=== PATIENT | female | born 1975 | race Caucasian/White ===

== ENCOUNTER → 2018-06-13 07:18 | Outpatient (CLI) | payer OTHER, SELFPAY ==
--- NOTE | 2018-06-13 07:23 | BI_ITS ---
MAMMOGRAPHY - BILATERAL SCREENING REASON FOR EXAM: Female, 42 years old. Routine annual screening examination. PERTINENT HISTORY: Non-contributory. TECHNIQUE: Digital bilateral breast vianey (3D mammographic acquisition) in the CC and MLO projections. 2-D mediolateral oblique (MLO) and craniocaudad (CC) views of both breasts were obtained. CAD: Full Field Digital Mammography with Computer Added Detection was performed. COMPARISON: Comparison is made with prior study dated June 16, 2017. FINDINGS: Breast Composition: The breasts are heterogeneously dense, which may obscure small masses. There are no dominant masses or suspicious calcifications. No other significant abnormalities are identified. There has been no significant change since the prior study. BI/SCREENING MAMM (CAD), BILAT IMPRESSION: Stable bilateral screening mammogram. Yearly follow-up mammogram recommended. (A) ASSESSMENT CATEGORY: BIRADS Category 1: Negative. A letter regarding these results will be sent to the patient by the facility within 30 days. Approximately 10% of breast cancers are not detected by mammography. A normal mammogram should not delay biopsy of a clinically suspicious abnormality. [id number] Electronically Signed: Deepak Morataya MD at 11:42 EST Tel [phone], Service support ,
== END ==
PROVIDERS: Referring Provider Nurse Practitioner Women's Health; Visit Provider Nurse Practitioner Women's Health
DX: Z12.31 Encounter for screening mammogram for malignant neoplasm of breast (principal)
CPT/HCPCS: 77063; 77067

== ENCOUNTER 2018-12-21 19:10 | Emergency (ER) | payer OTHER, SELFPAY ==
[2018-06-13 07:57] VITALS: BMI 27.5
[2018-12-21 19:10] VITALS: BP 178/81; PULSE 101; RESP 16; TEMP 36.7; O2SAT 99; BMI 26.5
[2018-12-21 20:40] VITALS: RESP 14
[2018-12-21 20:41] LABS: Absolute Lymphocyte Count 3.04 X10^3/uL (0.83-4.51); Absolute Neutrophil Count 5.8 X10^3/uL (2.0-7.7); Basophil# 0.09 X10^3/uL; Basophil% 0.9 % (0-1); Eosinophil# 0.07 X10^3/uL; Eosinophils% 0.7 % (0-5); Hematocrit 37.9 % (37-47); Hemoglobin 13.1 g/dL (12.0-15.0); Lymphocyte # 3.04 X10^3/ul (4.0); Lymphocyte % 31.8 % (19-41); Mean Corp Hgb Conc 34.6 g/dL (32-36); Mean Corpuscular Hgb 31.6 pg (27.0-32.0); Mean Corpuscular Volume 91.3 fL (81-99); Mean Platelet Vol. 9.7 fl (6.2-12.0); Monocyte# 0.52 X10^3/uL; Monocyte% 5.4 % (0-10); NRBC Flagged by Analyzer 0 % (0-5); Neutrophil # 5.81 X10^3/uL (2.7-7.7); Platelet Count 203 K/mm3 (150-450); RBC Distribution Width SD 39.9 fl (35.1-43.9); Red Blood Count 4.15 M/mm3 (4.2-5.4); White Blood Count 9.6 K/mm3 (4.4-11.0)
[2018-12-21 20:45] LABS: Mucous, Urine 0 SEEN /hpf (<or=2+)
[2018-12-21 20:59] LABS: Anion Gap 6 (5-15); BUN 15 mg/dL (7-18); BUN/Creat Ratio 17.4 RATIO (10-20); Calcium,Total 8.7 mg/dL (8.5-10.1); Chloride 104 mmol/L (98-107); Creatinine, Serum 0.86 mg/dL (0.55-1.02); EST Glomerular Filtration Rate 76 mL/min (>60); Est Glom Filt Rate - Afr Amer 92 mL/min (>60); Estimated Creatinine Clearance 69.05 ml/min; Glucose 89 mg/dL (74-106); Potassium 3.3 mmol/L (3.5-5.1); Sodium Level 136 mmol/L (136-145)
[2018-12-21 21:17] LABS: Color, Urine Yellow (Yellow); Glucose, Dipstick Normal (Normal); Ketone-Dipstick 5 mg/dl (Negative); Leukocyte Esterase-Dipstick 500 /ul (Negative); Nitrite-Dipstick Positive (Negative); Occult Blood-Urine 150 /ul (Negative); Protein-Dipstick 30 mg/dl (Negative); Specific Gravity, Urine 1.015 (1.002-1.030); Urine Bilirubin Dipstick Negative (Negative); Urine Clarity Sl. Cloudy (Clear); Urine Urobilinogen Normal (Normal)
--- NOTE | 2018-12-21 21:17 | CT_ITS ---
STUDY: CT ABDOMEN AND PELVIS WITH CONTRAST REASON FOR EXAM: Female, 43 years old. Right upper quadrant pain for 4 days. RADIATION DOSAGE (If Supplied By Facility): CTDIvol = ( 9.6 ) mGy, DLP = ( 463.76 ) mGycm TECHNIQUE: Transaxial images were obtained from the dome of the diaphragm to the symphysis pubis without oral contrast. 100 IV Isovue 300 was administered. Sagittal and coronal images were reconstructed. Individualized dose optimization techniques were used for this CT. COMPARISON: None. FINDINGS: The visualized lung bases are unremarkable. The visualized portions of the heart are within normal limits. There is hepatomegaly with diffuse hepatic enlargement. There is no focal mass. Normal gallbladder and extrahepatic biliary system. Normal spleen. Normal pancreas. Normal bilateral adrenal glands. Normal right kidney. Normal left kidney. Normal visualized stomach. Normal small intestine. Normal colon. The appendix is visualized and appears normal. Normal abdominal aorta. Normal inferior vena cava. Normal retroperitoneum. Normal urinary bladder. Uterus is retroverted and grossly unremarkable. Essure wires are seen in both fallopian tubes. There is no adnexal mass. There is no pelvic lymphadenopathy. No free air or free fluid is seen within the peritoneal cavity Normal abdominal wall. Degenerative changes lower lumbar spine most marked at L5-S1. CT/Abdomen/Pelvis W IV Cont ONLY IMPRESSION: 1. No evidence of acute intra-abdominal or pelvic process. 2. Normal appendix. 3. Mild degenerative changes of the lumbar spine. 4. Hepatomegaly Electronically Signed: Gregorio Mir DO at 21:56 EDT Tel [phone], Service support ,
--- NOTE | 2018-12-21 21:18 | ED.VIS.GI ---
History of Present Illness Chief Complaint: Abd Pain Informant: Patient - Abdominal Pain/Flank Pain Onset: Days - 4 Context: Gradual Onset Timing: Continuous Quality: Aching Location: RLQ Current Severity: Moderate Maximum Severity: Moderate Worsened by: Nothing Relieved by: Nothing - Nausea/Vomiting/Emesis GI Symptom: Negative for: Nausea, Vomiting - Diarrhea/Melena/Hematochezia GI Symptom: Negative for: Diarrhea, Melena, Hematochezia Associated Symptoms: Dysuria - off and on x 2-3 weeks. Negative for: Frequency, Hematuria, Urgency Narrative: Initially diffuse abdominal discomfort that was not able to be localized, but for the past 2 or 3 days it has been in the right lower quadrant. No radiation. No anorexia, nausea, vomiting. Sent from urgent care for further evaluation. Past Medical History - Allergies and Home Meds Allergies/Adverse Reactions: Allergies No Known Allergies Allergy (Verified 12/21/18 19:12) Primary Care Physician: Care Physician,No Primary [Primary Care Provider] - Past Medical History: None Surgical History: no surgical history Lives: With Family Smoking Status: Never smoker Drugs: None Review of Systems General: Denies: Chills, Fever, Sweats Eyes: Denies: Visual changes - bilaterally, Diplopia ENT: Denies: Rhinorrhea, Sore throat Cardiovascular: Denies: Chest pain, Palpitations Respiratory: Denies: Dyspnea, Cough, Dyspnea on exertion Gastrointestinal: Reports: Abdominal pain. Denies: Nausea, Vomiting, Diarrhea, Melena, Hematochezia Genitourinary: Reports: Dysuria. Denies: Hematuria, Frequency Musculoskeletal: Denies: Back pain, Swelling, Extremity Pain Skin: Denies: Rash, Wounds Neurological: Denies: Headache, Weakness, Numbness Physical Exam Vital Signs/Narrative: Vital Signs Temp Pulse Resp BP Pulse Ox 12/21/18 20:40 14 12/21/18 19:10 98.1 F 101 H 16 178/81 H 99 Inital Vital Signs reviewed: Yes General: Well nourished, Well developed, No Acute Distress - Well-appearing, pleasant. Head: Normocephalic, Atraumatic Eyes: Perrl, EOMI ENT: Moist mucous membranes, No rhinorrhea Neck: Supple, Nontender Cardiovascular: Regular rate, Regular rhythm, No murmurs Respiratory: No distress, CTA bilaterally, Chest nontender Abdomen: Soft, Nondistended, Normal bowel sounds, Tender - Right lower quadrant at McBurney's point. No hernias.. Negative for: Guarding, Rebound tenderness, Psoas sign, Obturator sign, Rovsig's sign, Snider's sign Back: Nontender, Normal Inspection. Negative for: CVA tenderness Extremities: Nontender, No edema Skin: Normal color, No rash, No Trauma Neurological: Alert, Oriented x3, Cranial nerves II-XII grossly intact, Normal Strength, Normal Sensation Psychological: Normal affect, Normal Mood Diagnostic/Tx/Re-eval Impressions Abdomen/Pelvis CT 12/21/18 21:17 IMPRESSION: 1. No evidence of acute intra-abdominal or pelvic process. 2. Normal appendix. 3. Mild degenerative changes of the lumbar spine. 4. Hepatomegaly Electronically Signed: Gregorio Mir DO at 21:56 EDT Tel [phone], Service support , 12/21/18 21:17 Abdomen/Pelvis W IV Cont ONLY [CT] Stat Laboratory Results 12/21/18 12/21/18 12/21/18 20:32 20:32 20:32 WBC 9.6 RBC 4.15 L Hgb 13.1 Hct 37.9 MCV 91.3 MCH 31.6 MCHC 34.6 RDW Std Deviation 39.9 RDW Coeff of Elliot 12.0 Plt Count 203 MPV 9.7 Immature Gran % (Auto) 0.200 Neut % (Auto) 61.0 Lymph % (Auto) 31.8 [place] % (Auto) 5.4 Eos % (Auto) 0.7 Baso % (Auto) 0.9 Absolute Neuts (auto) 5.8 Absolute Lymphs (auto) 3.04 Absolute Nucleated RBC 0.00 Nucleated RBC % 0 Sodium 136 Potassium 3.3 L Chloride 104 Carbon Dioxide 26.0 Anion Gap 6 BUN 15 Creatinine 0.86 Estim Creat Clear Calc 69.05 Est GFR (MDRD) Af Amer 92 Est GFR (MDRD) Non-Af 76 BUN/Creatinine Ratio 17.4 Glucose 89 Calcium 8.7 Serum , Qual NEGATIVE Urine Color Urine Clarity Urine pH Ur Specific Logan Urine Protein Urine Glucose (UA) Urine Ketones Urine Occult Blood Urine Nitrite Urine Bilirubin Urine Urobilinogen Ur Leukocyte Esterase Urine RBC Urine WBC Ur Squamous Epith Cells Urine Bacteria Urine Mucus 12/21/18 20:37 WBC RBC Hgb Hct MCV MCH MCHC RDW Std Deviation RDW Coeff of Elliot Plt Count MPV Immature Gran % (Auto) Neut % (Auto) Lymph % (Auto) [place] % (Auto) Eos % (Auto) Baso % (Auto) Absolute Neuts (auto) Absolute Lymphs (auto) Absolute Nucleated RBC Nucleated RBC % Sodium Potassium Chloride Carbon Dioxide Anion Gap BUN Creatinine Estim Creat Clear Calc Est GFR (MDRD) Af Amer Est GFR (MDRD) Non-Af BUN/Creatinine Ratio Glucose Calcium Serum , Qual Urine Color Yellow Urine Clarity Sl. Cloudy Urine pH 5.0 Ur Specific Logan 1.015 Urine Protein 30 H Urine Glucose (UA) Normal Urine Ketones 5 H Urine Occult Blood 150 H Urine Nitrite Positive H Urine Bilirubin Negative Urine Urobilinogen Normal Ur Leukocyte Esterase 500 H Urine RBC 10-25 SEEN Urine WBC 25-50 SEEN Ur Squamous Epith Cells 0-5 SEEN Urine Bacteria 1+ Urine Mucus 0 SEEN - Medical Decision Making Labs are unremarkable, white blood count is in the 9 range, which does not help in ruling in or out appendicitis. I feel she has some components of this that could be related to appendicitis and others that argue against it. I think imaging would be indicated. She was in agreement. CT was performed and shows normal appendix and no other acute abnormality, her urinalysis shows significant signs of infection. She states with simple bladder infections in the past, she had classic UTI symptoms which she has not been having now. Therefore I will send her urine for a culture, and put her on 1 week of Bactrim, I do not think she has pyelonephritis clinically so she does not need 2 weeks, but if she does have a sending infection, she may need more than 3 or 5 days. She agrees with all this and will follow-up if her symptoms do not improve. ED Disposition - Plan for ED Patient: Disposition: Home or Assisted Living Diagnosis: Right lower quadrant abdominal pain, Urinary tract infection Instructions: Understanding Urinary Tract Infections (UTIs) Prescriptions: Sulfamethoxazole/Trimethoprim [Bactrim Ds Tablet] 1 ea PO BID #[id number] tab Prescription Printed Referrals: Radha Maradiaga, [facility] [Nurse Practitioner] - 3-5 Days if not improving
[2018-12-21 21:21] LABS: Pregnancy, Serum, hCG Quali. NEGATIVE Negative (0-9 Nonpreg)
[2018-12-21 21:29] LABS: Bacteria 1+ /hpf (None Seen); Red Blood Cells-Urine 10-25 SEEN /hpf (0-5); Squamous Epithelial Cells - UA 0-5 SEEN /hpf (5-10); White Blood Cells 25-50 SEEN /hpf (0-5)
[2018-12-21 21:45] LABS: Internal QC Validated? YES +Cl - CLEAR BKGD
[2018-12-21] MEDS: 0.9% Normal Saline 1,000 ML 1000 ML IV (21:50)
[2018-12-21 23:07] VITALS: RESP 16
[2018-12-21] MEDS: Smz/Tmp Ds Tablet 1 TABLET PO (23:22)
== END 2018-12-22 00:21 | disposition home or self-care (01) ==
PROVIDERS: Emergency Provider Emergency Medicine
DX: N39.0 Urinary tract infection, site not specified (principal); R10.31 Right lower quadrant pain
CPT/HCPCS: 74177; 80048; 81001; 84703; 85025; 87077; 87086; 87088; 87186; 96360; 99283; J7030; Q9967

== ENCOUNTER → 2019-07-13 07:50 | Outpatient (CLI) | payer OTHER, SELFPAY ==
[2019-07-12 09:49] VITALS: BMI 26.5
--- NOTE | 2019-07-13 07:51 | BI_ITS ---
MAMMOGRAPHY - BILATERAL SCREENING 3-D TOMOSYNTHESIS REASON FOR EXAM: Female, 44 years old. Routine screening PERTINENT HISTORY: No significant family history. TECHNIQUE: 2-D mammograms and 3-D Tomosynthesis of the breast (s) were performed. CAD was performed. COMPARISON: 06/13/2018 FINDINGS: The breast composition is heterogeneously dense that can obscure small breast masses. Scattered benign calcifications are seen. No dense spiculated masses or suspicious microcalcifications are identified. No architectural distortion is identified. There is no skin thickening or retraction. There is asymmetric density in the medial aspect of the left breast deep near the retroglandular fat noted by CAD. Further evaluation of this area with ultrasound is recommended. Right breast is stable and free of mammographic abnormality. BI/SCREEN MAMM (CAD) W/OSIRIS BILAT IMPRESSION: Subtle change in the probable pattern of the left breast deep near the retroglandular fat in the medial aspect of the breast noted by CAD, best seen on the cc views. Further evaluation with ultrasound recommended ASSESSMENT CATEGORY: BIRADS Category 0: Incomplete. Need additional imaging evaluation as above. A letter regarding these results will be sent to the patient by the facility within 30 days. FOLLOW UP RECOMMENDATION: Ultrasound Recommended. (I) Approximately 10% of breast cancers are not detected by mammography. A normal mammogram should not delay biopsy of a clinically suspicious abnormality. Electronically Signed: Zachery Sloan MD at 10:36 EST , Service support ,
== END ==
PROVIDERS: Referring Provider Nurse Practitioner Women's Health; Visit Provider Nurse Practitioner Women's Health
DX: Z12.31 Encounter for screening mammogram for malignant neoplasm of breast (principal)
CPT/HCPCS: 77063; 77067

== ENCOUNTER → 2019-07-17 07:57 | Outpatient (CLI) | payer OTHER, SELFPAY ==
[2019-07-12 09:49] VITALS: BMI 26.5
--- NOTE | 2019-07-17 07:59 | US_ITS ---
STUDY: ULTRASOUND BREAST - LEFT REASON FOR EXAM: Female, 44 years old. Abnormal screening mammogram. TECHNIQUE: Axial and longitudinal images of the LEFT breast were performed with a high resolution ultrasound transducer. # OF IMAGES: 70 COMPARISON: Comparison is made with prior mammogram dated July 13, 2019. FINDINGS: LEFT Breast: The medial half of the left breast was examined by ultrasound. There is a 2 mm x 2 mm x 2 mm cyst at the 11:00 position of the breast at 4 cm from nipple. There is also a 3 mm x 2 mm x 2 mm cyst at the 9:00 position breast at 2 cm from the nipple. US/Breast Limited Unilateral IMPRESSION: 2 small cysts are seen at the 11:00 and 9:00 position of the breast. ASSESSMENT CATEGORY: BIRADS Category 2: Benign. A letter regarding these results will be sent to the patient by the facility within 30 days. Electronically Signed: Deepak Morataya, at 9:41 EST , Service support ,
== END ==
PROVIDERS: Referring Provider Nurse Practitioner Women's Health; Visit Provider Nurse Practitioner Women's Health
DX: R92.8 Other abnormal and inconclusive findings on diagnostic imaging of breast (principal)
CPT/HCPCS: 76642

== ENCOUNTER → 2020-07-16 07:36 | Outpatient (CLI) | payer OTHER, SELFPAY ==
[2019-07-12 09:49] VITALS: BMI 26.5
--- NOTE | 2020-07-16 07:39 | BI_ITS ---
MAMMOGRAPHY - BILATERAL SCREENING REASON FOR EXAM: Female, 45 years old. Routine annual screening examination. PERTINENT HISTORY: Non-contributory. TECHNIQUE: Digital bilateral breast osiris (3D mammographic acquisition) in the CC and MLO projections. 2-D mediolateral oblique (MLO) and craniocaudad (CC) views of both breasts were obtained. CAD: Full Field Digital Mammography with Computer Added Detection was performed. COMPARISON: Comparison is made with prior study dated 07/13/2019 and 06/13/2018. FINDINGS: Breast Composition: The breasts are heterogeneously dense, which may obscure small masses. There are no dominant masses or suspicious calcifications. No other significant abnormalities are identified. There has been no significant change since the prior study. BI/SCRN MAMM (CAD)W/OSIRIS BILAT IMPRESSION: Stable bilateral screening mammogram. Yearly follow-up mammogram recommended. (A) ASSESSMENT CATEGORY: BIRADS Category 2: Benign. A letter regarding these results will be sent to the patient by the facility within 30 days. Approximately 10% of breast cancers are not detected by mammography. A normal mammogram should not delay biopsy of a clinically suspicious abnormality. [id number] Electronically Signed: Deepak Morataya MD at 8:35 EST , Service support ,
[2020-07-18 21:11] LABS: HPV APTIMA, High Risk Negative (Negative)
== END ==
PROVIDERS: Referring Provider Nurse Practitioner Women's Health; Visit Provider Nurse Practitioner Women's Health
DX: Z12.31 Encounter for screening mammogram for malignant neoplasm of breast (principal); Z12.4 Encounter for screening for malignant neoplasm of cervix
CPT/HCPCS: 77063; 77067; 87624; 88175; G0145

== ENCOUNTER → 2021-05-15 13:50 | Outpatient (CLI) | payer OTHER, SELFPAY ==
--- NOTE | 2021-05-15 13:52 | BI_ITS ---
MAMMOGRAPHY - BILATERAL DIAGNOSTIC REASON FOR EXAM: Female, 45 years old. One week history of right axillary lump. PERTINENT HISTORY: Non-contributory. TECHNIQUE: Digital bilateral breast vianey (3D mammographic acquisition) in the CC and MLO projections. 2-D mediolateral oblique (MLO) and craniocaudad (CC) views of both breasts were obtained. CAD: Full Field Digital Mammography with Computer Added Detection was performed. COMPARISON: Comparison is made with prior study dated 07/16/2020 and 02/11/2020. FINDINGS: Breast Composition: The breasts are heterogeneously dense, which may obscure small masses. There are no dominant masses or suspicious calcifications. No other significant abnormalities are identified. There has been no significant change since the prior study. BI/DIAG MAMM W/CAD, BILAT IMPRESSION: Stable bilateral diagnostic mammogram. With the patient''s history of a right axillary lump, correlation with ultrasound is recommended. ASSESSMENT CATEGORY: BIRADS Category 0: Incomplete. Need additional imaging evaluation. A letter regarding these results will be sent to the patient by the facility within 30 days. Approximately 10% of breast cancers are not detected by mammography. A normal mammogram should not delay biopsy of a clinically suspicious abnormality. Electronically Signed: Deepak Morataya MD at 14:58 EST , Service support ,
--- NOTE | 2021-05-15 13:52 | US_ITS ---
STUDY: ULTRASOUND BREAST - RIGHT REASON FOR EXAM: Female, 45 years old. Right axillary lump. TECHNIQUE: Axial and longitudinal images of the RIGHT breast were performed with a high resolution ultrasound transducer. # OF IMAGES: 15 COMPARISON: Comparison is made with prior mammogram done earlier in the day. FINDINGS: RIGHT Breast: The right axillary region was examined by ultrasound. There is dense fibrous and glandular tissue. No solid or cystic mass lesion is seen. US/Breast Limited Unilateral IMPRESSION: No sonographic abnormality is seen. ASSESSMENT CATEGORY: BIRADS Category 2: Benign. A letter regarding these results will be sent to the patient by the facility within 30 days. Electronically Signed: Deepak Morataya MD at 15:04 EST , Service support ,
== END ==
PROVIDERS: Referring Provider Nurse Practitioner Women's Health; Visit Provider Nurse Practitioner Women's Health
DX: N63.0 Unspecified lump in unspecified breast (principal); R22.2 Localized swelling, mass and lump, trunk
CPT/HCPCS: 76642; 77062; 77063; 77066; G0279

== ENCOUNTER 2021-09-16 08:43 | Outpatient (CLI) | payer OTHER, SELFPAY ==
[2021-09-16 09:45] LABS: Cholesterol 238 mg/dL (200); Glucose 98 mg/dL (74-106); High Density Lipoprotein 103 mg/dL; Thyroid Stim Hormone (TSH) 2.04 uIU/mL (0.358-3.74); Triglycerides 109 mg/dL; Very Low Density Lipoprotein 22 mg/dL (5-40)
[2021-09-16 09:58] LABS: Vitamin D,25 Hydroxy 32.2 ng/mL
== END 2021-09-16 23:59 | disposition home or self-care (01) ==
LOC: PAVLAB 08:44
PROVIDERS: Referring Provider Nurse Practitioner Women's Health; Visit Provider Nurse Practitioner Women's Health
DX: Z13.1 Encounter for screening for diabetes mellitus (principal); Z13.220 Encounter for screening for lipoid disorders; Z13.29 Encounter for screening for other suspected endocrine disorder; Z13.21 Encounter for screening for nutritional disorder
CPT/HCPCS: 36415; 80061; 82306; 82947; 84443

== ENCOUNTER → 2022-07-23 | Outpatient (CLI) | payer OTHER, SELFPAY ==
--- NOTE | 2022-07-23 07:58 | BI_ITS ---
MAMMOGRAPHY - BILATERAL SCREENING REASON FOR EXAM: Female, 47 years old. Routine annual screening examination. PERTINENT HISTORY: Non-contributory. TECHNIQUE: Digital bilateral breast osiris (3D mammographic acquisition) in the CC and MLO projections. 2-D mediolateral oblique (MLO) and craniocaudad (CC) views of both breasts were obtained. CAD: Full Field Digital Mammography with Computer Added Detection was performed. COMPARISON: Comparison is made with prior study dated 07/16/2020 and 05/15/2021. FINDINGS: Breast Composition: The breasts are heterogeneously dense, which may obscure small masses. There are no dominant masses or suspicious calcifications. No other significant abnormalities are identified. There has been no significant change since the prior study. BI/SCRN MAMM (CAD)W/OSIRIS BILAT IMPRESSION: Stable bilateral screening mammogram. Yearly follow-up mammogram recommended. (A) ASSESSMENT CATEGORY: BIRADS Category 1: Negative. A letter regarding these results will be sent to the patient by the facility within 30 days. Approximately 10% of breast cancers are not detected by mammography. A normal mammogram should not delay biopsy of a clinically suspicious abnormality. [id number] Electronically Signed: Deepak Morataya MD at 9:01 EST ,
== END | disposition home or self-care (01) ==
LOC: OPBI 07:58
PROVIDERS: Visit Provider Nurse Practitioner Women's Health
DX: Z12.31 Encounter for screening mammogram for malignant neoplasm of breast (principal)
CPT/HCPCS: 77063; 77067

== ENCOUNTER → 2022-09-28 | Outpatient (CLI) | payer OTHER, SELFPAY ==
[2022-09-28 09:50] LABS: Vitamin D,25 Hydroxy 47.7 ng/mL
[2022-09-28 09:56] LABS: Cholesterol 191 mg/dL (200); Glucose 101 mg/dL (74-106); High Density Lipoprotein 86 mg/dL; Triglycerides 97 mg/dL; Very Low Density Lipoprotein 19 mg/dL (5-40)
== END | disposition home or self-care (01) ==
LOC: PAVLAB 08:58
PROVIDERS: Referring Provider Nurse Practitioner Women's Health; Visit Provider Nurse Practitioner Women's Health
DX: Z13.1 Encounter for screening for diabetes mellitus (principal); Z13.220 Encounter for screening for lipoid disorders; Z13.21 Encounter for screening for nutritional disorder; Z13.29 Encounter for screening for other suspected endocrine disorder
CPT/HCPCS: 36415; 80061; 82306; 82947; 84443

== ENCOUNTER → 2022-09-30 | Outpatient (CLI) | payer OTHER, SELFPAY ==
--- NOTE | 2022-09-30 14:32 | US_ITS ---
INDICATION: left adnexal fullness EXAMINATION: US Pelvis Non OB Complete With Transvaginal Imaging TECHNIQUE: Transabdominal and transvaginal pelvic ultrasound was performed. Grayscale, spectral waveform, and color flow Doppler evaluation of the adnexa. COMPARISON: None. FINDINGS: UTERUS: Retroverted. The uterus measures 8.5 x 4.5 x 4.2 cm. There is no uterine mass. The endometrial stripe measures 2 mm in AP diameter which is within normal limits. Nabothian cysts. RIGHT OVARY: Measures 3.9 x 2 x 1.8 cm. Non-enlarged, normal echogenicity. There is normal arterial inflow and venous outflow present in the right ovary.There is a well-circumscribed mostly anechoic cyst measuring 2.5 cm. LEFT OVARY: Measures 1.9 x 1.4 x 0.7 cm. Non-enlarged, normal echogenicity. There is normal arterial inflow and venous outflow present in the left ovary. Partially visualized Essure device seen in the left adnexa. FREE FLUID: None. OTHER: Bladder is distended. US/Pelvic w/ Transvaginal IMPRESSION: Normal pelvic ultrasound. Distended bladder. Electronically Signed: Tramaine Crook MD at 16:42 EDT ,
== END | disposition home or self-care (01) ==
LOC: US 14:31
PROVIDERS: Referring Provider Nurse Practitioner Women's Health; Visit Provider Nurse Practitioner Women's Health
DX: N94.9 Unspecified condition associated with female genital organs and menstrual cycle (principal)
CPT/HCPCS: 76830; 76856

== ENCOUNTER → 2023-10-11 | Outpatient (CLI) | payer OTHER, SELFPAY ==
--- NOTE | 2023-10-11 07:41 | BI_ITS ---
MAMMOGRAPHY - BILATERAL SCREENING REASON FOR EXAM: Female, 48 years old. Routine annual screening examination. PERTINENT HISTORY: Non-contributory. TECHNIQUE: Digital bilateral breast osiris (3D mammographic acquisition) in the CC and MLO projections. 2-D mediolateral oblique (MLO) and craniocaudad (CC) views of both breasts were obtained. CAD: Full Field Digital Mammography with Computer Added Detection was performed. COMPARISON: Comparison is made with prior study of July 23, 2022 and May 15, 2021. FINDINGS: Breast Composition: The breasts are heterogeneously dense, which may obscure small masses. There are no dominant masses or suspicious calcifications. Breast tissue is seen in the right axillary tail. This is unchanged. No other significant abnormalities are identified. There has been no significant change since the prior study. BI/SCRN MAMM (CAD)W/OSIRIS BILAT IMPRESSION: Stable bilateral screening mammogram. Yearly follow-up mammogram recommended. (A) ASSESSMENT CATEGORY: BIRADS Category 2: Benign. A letter regarding these results will be sent to the patient by the facility within 30 days. Approximately 10% of breast cancers are not detected by mammography. A normal mammogram should not delay biopsy of a clinically suspicious abnormality. [id number] Electronically Signed: Deepak Morataya MD at 8:22 EDT ,
== END | disposition home or self-care (01) ==
LOC: OPBI 07:41
PROVIDERS: Referring Provider Nurse Practitioner Women's Health; Visit Provider Nurse Practitioner Women's Health
DX: Z12.31 Encounter for screening mammogram for malignant neoplasm of breast (principal)
CPT/HCPCS: 77063; 77067

== ENCOUNTER → 2024-06-15 | Outpatient (CLI) | payer OTHER, SELFPAY ==
[2024-06-15 15:54] LABS: ALB/GLOB Ratio 1.1 RATIO (0.9-2.4); AST(SGOT) 23 U/L (15-37); Alanine Aminotransfer ALT/SGPT 27 U/L (13-56); Alkaline Phosphatase 59 U/L (45-117); Anion Gap 4 (5-15); BUN 13 mg/dL (7-18); BUN/Creat Ratio 17.2 RATIO (10-20); Calcium,Total 9.3 mg/dL (8.5-10.1); Chloride 104 mmol/L (98-107); Cholesterol 220 mg/dL (200); Creatinine, Serum 0.75 mg/dL (0.55-1.02); EST Glomerular Filtration Rate 86 mL/min (>60); Est Glom Filt Rate - Afr Amer 105 mL/min (>60); Globulin 3.8 g/dL (2.2-4.2); Glucose 92 mg/dL (74-106); High Density Lipoprotein 89 mg/dL; Protein, Total 7.8 g/dL (6.4-8.2); Sodium Level 135 mmol/L (136-145); Triglycerides 92 mg/dL; Very Low Density Lipoprotein 18 mg/dL (5-40)
[2024-06-15 16:22] LABS: Absolute Lymphocyte Count 1.87 X10^3/uL (0.83-4.51); Absolute Neutrophil Count 1.9 X10^3/uL (2.0-7.7); Basophil% 2.3 % (0-1); Eosinophil# 0.04 X10^3/uL; Eosinophils% 0.9 % (0-5); Hematocrit 42.2 % (37-47); Hemoglobin 14.4 g/dL (12.0-15.0); Lymphocyte # 1.87 X10^3/ul (0.83-4.51); Lymphocyte % 42.3 % (19-41); Mean Corp Hgb Conc 34.1 g/dL (32-36); Mean Corpuscular Hgb 31.4 pg (27.0-32.0); Mean Corpuscular Volume 92.1 fL (81-99); Mean Platelet Vol. 10.5 fl (6.2-12.0); Monocyte# 0.48 X10^3/uL; Monocyte% 10.9 % (0-10); NRBC Flagged by Analyzer 0 % (0-5); Neutrophil # 1.92 X10^3/uL (2.7-7.7); Neutrophil % 43.4 % (47-70); Platelet Count 274 K/mm3 (150-450); RBC Distribution Width CV 11.9 % (11.6-14.6); RBC Distribution Width SD 40.8 fl (35.1-43.9); Red Blood Count 4.58 M/mm3 (4.2-5.4); White Blood Count 4.4 K/mm3 (4.4-11.0)
== END | disposition home or self-care (01) ==
LOC: MTLAB 08:54
PROVIDERS: PCP Internal Medicine; Referring Provider Internal Medicine; Visit Provider Internal Medicine
DX: Z00.00 Encounter for general adult medical examination without abnormal findings (principal)
CPT/HCPCS: 36415; 80053; 80061; 85025

== ENCOUNTER 2024-07-24 07:51 | Day surgery (SDC) | payer OTHER, SELFPAY ==
[2024-07-24] VITALS (7 sets, daily range): BP systolic 116–146; BP diastolic 56–83; PULSE 68–80; RESP 16; TEMP 36.5–37.3; O2SAT 98–100; BMI 25.3
[2024-07-24 08:24] LABS: Internal QC Validated? YES +Cl - CLEAR BKGD; Pregnancy, Urine Negative Negative
--- NOTE | 2024-07-24 08:40 | PCM.PRE.AN2 ---
ASA Classification* ASA Classification ASA Classification: 1 Assessment & Plan Anesthesia* Anesthesia Assessment Anesthesia Assessment: Discussed sedation and/or anesthesia options, risks, benefits, and alternatives with patient/parents/legal guardian/POA. Questions invited. The patient/parents/legal guardian/POA seems to understand and agrees to proceed with anesthesia plan. Reviewed the physical assessment, medical history, allergy history and patient home medications list prior to surgery/procedure/anesthetic and documented any changes. Performed airway and anesthesia risk assessments. Anesthesia Type Anesthesia Type: MAC History Source History Obtained from:: Patient and Chart Anesthesia Focused Assessment* Temperature: 99.1 F Pulse Rate: 80 Blood Pressure: 146/69 Respiratory Rate: 16 Pulse Ox: 100 Oxygen Delivery Method: Room Air Airway Assessment Mouth opens: >3 cm Mallampati Score: I Teeth Condition: Intact Neck Range of motion (ROM): Full ROM Focused Labs Anesthesia Preop lab: CBC WBC 4.4 K/mm3 (4.4-11.0) 06/15/24 08:59 06/15/24 RBC 4.58 M/mm3 (4.2-5.4) 06/15/24 08:59 06/15/24 Hgb 14.4 g/dL (12.0-15.0) 06/15/24 08:59 06/15/24 Hct 42.2 % (37-47) 06/15/24 08:59 06/15/24 Plt Count 274 K/mm3 (150-450) 06/15/24 08:59 06/15/24 CHEMISTRY Potassium 4.0 mmol/L (3.5-5.1) 06/15/24 08:59 06/15/24 Sodium 135 mmol/L (136-145) L 06/15/24 08:59 06/15/24 BUN 13 mg/dL (7-18) 06/15/24 08:59 06/15/24 Creatinine 0.75 mg/dL (0.55-1.02) 06/15/24 08:59 06/15/24 Glucose 92 mg/dL (74-106) 06/15/24 08:59 06/15/24 TSH 2.90 uIU/mL (0.358-3.74) 09/28/22 09:00 09/28/22 COAG Urine Test Negative Negative 07/24/24 08:10 07/24/24 Pre-Assessment Diagnosis/Proposed Procedure Planned Operative Procedure(s): CSCOPE OA Anesthesia History Anesthesia History - live source operator: Anesthesia History - live source operator Hx Hospitalization No 07/20/24 12:45 Any Problems With Anesthesia No 07/20/24 12:45 Cholinesterase deficiency No 07/20/24 12:45 You/Your Family Experience No 07/20/24 12:45 fever (hyperthermia) with Relationship Recent Exposure to Contagious No 07/24/24 08:18 Disease Does patient have nerve No 07/20/24 12:45 stimulator Patient instructed to have device shut off --Does patient have Pacemaker No 07/24/24 08:18 or ICD? When Was Last Pacemaker Check QUESTION #4 FULL TEXT: You/Your Family Experience fever (hyperthermia) with Anesthesia Last Oral Intake Last Oral intake: Last Oral Intake NPO since 04:45 07/24/24 08:18 Meds taken in AM with sips of water? Meds patient instructed to take am of surgery Any additional information?: Yes NPO since: 04:45 (Patient finished her prep at 4:45 AM.) Meds taken in AM with sips of water?: Yes PONV PONV - live source operator: PONV - live source operator Female Yes 07/20/24 12:45 HX of Motion Sickness Yes 07/20/24 12:45 HX of N/V After Surgery No 07/20/24 12:45 Non-Smoker Yes 07/20/24 12:45 Duration of Surgery greater No 07/20/24 12:45 than 60 minutes Number of Risk Factors 3 07/20/24 12:45 PONV Score Moderate Risk 07/20/24 12:45 Height & Weight Height & Weight: Anesthesia: Height & Weight Height 5 ft 5 in 07/24/24 08:18 Weight: 69 kg 07/24/24 08:18 Body Mass Index (BMI) 25.3 07/24/24 08:18 Respiratory Assessment Respiratory Assessment - live source operator: Respiratory Tract Infection Hx - live source operator Hx Respiratory Tract Infection No 07/20/24 12:45 STOP Sleep Apnea STOP Sleep Apnea - live source operator: STOP Sleep Apnea - live source operator Hx Hypertension Yes: DURING ONLY 07/20/24 12:45 Hx Sleep Apnea No 07/20/24 12:45 CPAP BIPAP Do you snore loudly (louder No 07/20/24 12:45 than talking or can be heard Do you often feel tired/ No 07/20/24 12:45 fatigued/ sleepy during daytime? Has anyone observed you stop No 07/20/24 12:45 breathing during sleep? STOP Results Negative 07/20/24 12:45 QUESTION #5 FULL TEXT : Do you snore loudly (louder than talking or can be heard through closed doors)? Tobacco Use History Tobacco Use History - live source operator: Tobacco Use History - live source operator Tobacco Use Smoking Status Never smoker 07/20/24 12:45 Hx Tobacco Use No 07/20/24 12:45 Years Smoking Packs Smoked per Day Smoking Cessation Date was within the last 15 years Hx Smoking Cessation Date Hx Smoking Cessation Counseling Hematologic Medial History Hematologic Hx - live source operator: Hematologic Medical Hx - cloud consultant Hx of Blood Transfusion No 07/20/24 12:45 Hx of Transfusion in last 3 No 07/20/24 12:45 Months Date of Last Transfusion (if within last 3 months) Ever experience any problems No 07/20/24 12:45 with transfusion(s)? Specify any problems Hx of Preganancy in last 3 No 07/20/24 12:45 Months Nurse Filling Out Transfusion DSCHRIBER 07/20/24 12:45 & Questions: Date: 07/20/24 07/20/24 12:45 Time: 12:46 07/20/24 12:45 Patient unable to answer at this time (ie. confused, unrespo /Reproduction History /Reproductive History - live source operator: /Reproductive Hx- live source operator Hx Now No 07/20/24 12:45 Gestational Age (in weeks): EDC: Hx Hx Para Hx Section SAB No 07/20/24 12:45 PFSH Medical History (Updated 07/20/24 @ 12:49 by Selin Spencer) Alcohol use Non-smoker Hypertension Colon cancer screening Preventative health nursing home Medications ?Medication ?Instructions ?Recorded ?Last Taken ?Type drospirenone 3 mg-ethinyl 1 tab PO QDAY #28 tabs 02/20/24 07/24/24 Rx estradiol 0.02 mg tablet (MALA (28)) multivitamin 1 tab PO QDAY 06/08/24 Unknown History multivitamin with iron (Hair 1 tab PO QDAY 06/08/24 Unknown History Vitamins tablet) Allergy/AdvReac Type Severity Reaction Status Date / Time No Known Allergies Allergy Verified 07/24/24 08:17 Surgical History Encounter for Essure implantation Social History (Updated 05/10/24 @ 15:54 by Reba Go MA) adopted: No household members: spouse housing: house number of children: 2 current occupational status: employed current occupation: [employer] current occupational exposures/hazards: No pets and animals: Yes leisure activities: exercise history of recent travel: Yes sexually active: Yes Smoking Status: Never smoker second hand exposure: No alcohol intake: current alcohol intake frequency: a few times a week Alcohol type: wine details: social substance use type: does not use well-balanced diet: daily or most days caffeine: Yes Type: coffee eating out: 1-3 times/week during the past year weight has: increased > 10 lbs what type of physical activity do you participate in: walking seatbelt use: always do you feel safe at home: Yes additional social history: Foreign- Both work at [employer] Review of Systems (Anesthesia) ROS Narrative System reviewed and no additional complaints, except as documented.
--- NOTE | 2024-07-24 09:12 | PCM.HP.STD ---
[facility] - General General Date of Admission: 07/24/24 Date of Service: 07/24/24 Chief Complaint: Screening colonoscopy HPI Narrative VIKAS PALACIO, is a 49 F who presents for screening colonoscopy today. She has had no previous colonoscopy. She denies any GI issues or problems. She denies a family history of colon polyps or colon cancers [facility] Medical History Alcohol use Non-smoker Hypertension Colon cancer screening Preventative health residential Medications ?Medication ?Instructions ?Recorded ?Last Taken ?Type drospirenone 3 mg-ethinyl 1 tab PO QDAY #28 tabs 02/20/24 07/24/24 Rx estradiol 0.02 mg tablet (MALA (28)) multivitamin 1 tab PO QDAY 06/08/24 Unknown History multivitamin with iron (Hair 1 tab PO QDAY 06/08/24 Unknown History Vitamins tablet) Allergy/AdvReac Type Severity Reaction Status Date / Time No Known Allergies Allergy Verified 07/24/24 08:17 Surgical History Encounter for Essure implantation Social History adopted: No household members: spouse housing: house number of children: 2 current occupational status: employed current occupation: [employer] current occupational exposures/hazards: No pets and animals: Yes leisure activities: exercise history of recent travel: Yes sexually active: Yes Smoking Status: Never smoker second hand exposure: No alcohol intake: current alcohol intake frequency: a few times a week Alcohol type: wine details: social substance use type: does not use well-balanced diet: daily or most days caffeine: Yes Type: coffee eating out: 1-3 times/week during the past year weight has: increased > 10 lbs what type of physical activity do you participate in: walking seatbelt use: always do you feel safe at home: Yes additional social history: Foreign- Both work at [employer] ROS Constitutional Constitutional: Reports systems reviewed and no addt'l complaints, except as documented Eyes Eyes: Reports systems reviewed and no addt'l complaints, except as documented ENT HEENT: Reports systems reviewed and no addt'l complaints, except as documented Cardiovascular Cardiovascular: Reports systems reviewed and no addt'l complaints, except as documented Respiratory/Chest Respiratory/Chest: Reports systems reviewed and no addt'l complaints, except as documented Gastrointestinal Gastrointestinal: Reports systems reviewed and no addt'l complaints, except as documented Vital Signs Vital Signs Vital Signs: 07/24/24 08:18 07/24/24 08:18 07/24/24 08:45 Temperature 99.1 F 99.1 F Temperature Source Temporal Pulse Rate 80 80 Respiratory Rate 16 16 Respiratory Pattern Normal Blood Pressure 146/69 H 146/69 H Blood Pressure Mean 94 Blood Pressure Source Monitor Blood Pressure Position Sitting Blood Pressure Location Right Arm Pulse Ox 100 100 Oxygen Delivery Method Room Air Room Air Weight Weight: 152 lb 1.903 oz Body Mass Index (BMI) 25.3 Results Lab / Micro Data Labs: Laboratory Results - last 24 hr 07/24/24 08:10: Urine Test Negative Assessment & Plan Assessment/Plan (1) Colon cancer screening: PLAN: Plan The patient is a 49-year-old female in need of a screening colonoscopy. We discussed the details of the planned procedure as well as the risks benefits and alternatives. She wishes to proceed. This will begin momentarily Charges/Coding Visit Charges Inpatient E&M: 04877 Init Hosp L1
--- NOTE | 2024-07-24 09:45 | OP.COLON_ITS ---
Patient Name: Vidhya Bourne Procedure Date: 07/24/2024 9:14 AM Date of : 1975 Age: 49 Procedure: Colonoscopy Indications: Screening for colorectal malignant neoplasm Providers: Doug Acosta MD Medicines: Monitored Anesthesia Care Patient Profile: Refer to note in patient chart for documentation of history and physical. Last Colonoscopy: none. The patient's first colonoscopy is today. Complications: No immediate complications. Estimated blood loss: None. Procedure: Pre-Anesthesia Assessment: - Prior to the procedure, a History and Physical was performed, and patient medications and allergies were reviewed. The patient's tolerance of previous anesthesia was also reviewed. The risks and benefits of the procedure and the sedation options and risks were discussed with the patient. All questions were answered, and informed consent was obtained. Prior Anticoagulants: The patient has taken no anticoagulant or antiplatelet agents. ASA Grade Assessment: II - A patient with mild systemic disease. After reviewing the risks and benefits, the patient was deemed in satisfactory condition to undergo the procedure. After I obtained informed consent, the scope was passed under direct vision. Throughout the procedure, the patient's blood pressure, pulse, and oxygen saturations were monitored continuously. The colonoscope was introduced through the anus and advanced to the cecum, identified by the appendiceal orifice, ileocecal valve and palpation. The ileocecal valve, appendiceal orifice, and rectum were photographed. The entire colon was well visualized. The colonoscopy was performed without difficulty. The patient tolerated the procedure well. The quality of the bowel preparation was adequate. Moderate Sedation: See the other procedure note for documentation of moderate sedation with intraservice time. Scope In: 9:22:57 AM Scope Withdrawal Time 0 hours 9 minutes 20 seconds Scope Out: 9:41:39 AM Total Procedure Duration Time 0 hours 18 minutes 42 seconds Findings: The perianal and digital rectal examinations were normal. The entire examined colon appeared normal on direct and retroflexion views. Impression: - The entire examined colon is normal on direct and retroflexion views. - No specimens collected. Recommendation: - Discharge patient to home (ambulatory). - High fiber diet. - Continue present medications. - Repeat colonoscopy in 10 years for screening purposes. - Return to my office PRN. Procedure Code(s): --- Professional --- 54584, Colonoscopy, flexible; diagnostic, including collection of specimen(s) by brushing or washing, when performed (separate procedure) Diagnosis Code(s): --- Professional --- Z12.11, Encounter for screening for malignant neoplasm of colon CPT copyright 2021 [employer]. All rights reserved. The codes documented in this report are preliminary and upon design teacher review may be revised to meet current compliance requirements. Doug Acosta MD 07/24/2024 9:45:07 AM This report has been signed electronically. Number of Addenda: 0 Note Initiated On: 07/24/2024 9:14 AM
--- NOTE | 2024-07-24 09:46 | OP.CCLET_ITS ---
07/24/2024 Trell Figueroa MD [address] [place] [address] [place] [address] Re : Colonoscopy procedure for Vidhya Bourne Dear Dr. Figueroa This procedure was performed on Wednesday, July 24, 2024. My impressions and recommendations are as follows: Impressions : - The entire examined colon is normal on direct and retroflexion views. - No specimens collected. Recommendations : - Discharge patient to home (ambulatory). - High fiber diet. - Continue present medications. - Repeat colonoscopy in 10 years for screening purposes. - Return to my office PRN. My findings are described in the full procedure note, which is enclosed. If I can be of further assistance, please feel free to contact me at . Sincerely, Doug Acosta MD 07/24/2024 9:45:07 AM This report has been signed electronically.
--- NOTE | 2024-07-24 09:53 | PCM.POST.ANE ---
Anesthesia: Postop Eval I Current Vital Signs Temperature: 97.7 F Pulse Rate: 74 Blood Pressure: 119/70 Respiratory Rate: 16 Pulse Ox: 100 Oxygen Delivery Method: Room Air Assessment Airway patent: Yes Spontaneous unlabored respirations: Yes Mental status: Awake and Calm nausea: No Vomiting: No Anesthesia Complication: No Fluid Hydration Crystalloid volume administer (ml): 50 Total IV fluid infused: 50 Progress Note Anesthesia document: Postop Eval 1 completed: Yes
--- NOTE | 2024-07-24 10:59 | PCM.POSTANE2 ---
Anesthesia Postop Eval I Sum Postop Eval Completion status Anesthesia document: Postop Eval 1 completed: Yes Anesthesia Postop Eval I Summary Anesthesia Postop Eval I Summary: Anesthesia Postop Eval I: Assessment Summary Airway patent Yes 07/24/24 09:54 [email or web address] Spontaneous unlabored Yes 07/24/24 09:54 [email or web address] respirations Mental status Awake,Calm 07/24/24 09:54 [email or web address] nausea No 07/24/24 09:54 [email or web address] Vomiting No 07/24/24 09:54 [email or web address] Anesthesia Postop Eval I: Fluid Summary Crystalloid volume administer 50 07/24/24 09:54 [email or web address] (ml) Colloids volume administered ( ml) Blood Product volume administered (ml) Total IV fluid infused 50 07/24/24 09:54 [email or web address] Anesthesia Postop Eval I: Summary Notes Anesthesia Complication No 07/24/24 09:54 [email or web address] Anesthesia Complication Comment: Post-operative progress note Anesthesia: Postop Eval II Evaluation Mental status: Awake and Calm Pain Level: 0 nausea: No Vomiting: No Complications Anesthesia Complication: No
== END 2024-07-24 10:09 | disposition home or self-care (01) ==
LOC: EN 07:51 → AC 07:58
PROVIDERS: Anesthesiology; PCP Internal Medicine; Referring Provider Internal Medicine; Visit Provider Surgery
PROC: 0DJD8ZZ Inspection of Lower Intestinal Tract, Via Natural or Artificial Opening Endoscopic (ICD-10-PCS; CPT 45378; principal; 2024-07-24 08:55)
DX: Z12.11 Encounter for screening for malignant neoplasm of colon (principal); I10 Essential (primary) hypertension
CPT/HCPCS: 45378; 81025; A4216; J2405

== ENCOUNTER → 2024-10-11 | Outpatient (CLI) | payer OTHER, SELFPAY ==
--- NOTE | 2024-10-11 07:34 | BI_ITS ---
EXAM: SCRN MAMM (CAD)W/OSIRIS BILAT DATE: 10/11/2024 CLINICAL HISTORY: F, Age 49 y/o , SCREENING FOR BREAST CANCER BREAST CANCER RISK ASSESSMENT: Not reported TECHNIQUE: Bilateral screening digital breast tomosynthesis with 2D and 3D images. Computer aided detection. COMPARISON: Prior exam(s) were compared FINDINGS: TISSUE DENSITY: The breast tissue is heterogenously dense, which may obscure small masses. Bilateral Breast Mammographic Findings: No suspicious masses, calcifications or other abnormalities are identified. BI/SCRN MAMM (CAD)W/OSIRIS BILAT IMPRESSION: OVERALL FINAL ASSESSMENT: BIRADS 1 NEGATIVE RECOMMENDATION: Routine annual follow-up in 1 Year A letter with findings and recommendations will be mailed to the patient. Reading Location: [id number]
[2024-10-16 10:08] LABS: HPV APTIMA, High Risk Negative (Negative)
== END | disposition home or self-care (01) ==
LOC: OPBI 07:29
PROVIDERS: Advanced Practice Midwife; PCP Internal Medicine; Referring Provider Nurse Practitioner Women's Health; Visit Provider Nurse Practitioner Women's Health
DX: Z12.31 Encounter for screening mammogram for malignant neoplasm of breast (principal); Z12.4 Encounter for screening for malignant neoplasm of cervix
CPT/HCPCS: 77063; 77067; 87624; 88175; G0145

== ENCOUNTER → 2025-05-13 | Outpatient (CLI) | payer OTHER, SELFPAY ==
[2025-05-13 12:30] LABS: Hematocrit 41.6 % (37-47); Hemoglobin 13.8 g/dL (12.0-15.0); Immature Granulocytes Count 0.010 X10^3/uL (0.0-0.0); Mean Corp Hgb Conc 33.2 g/dL (32-36); Mean Corpuscular Volume 95.9 fL (81-99); Mean Platelet Vol. 10.6 fl (6.2-12.0); NRBC Flagged by Analyzer 0 % (0-5); Platelet Count 250 K/mm3 (150-450); RBC Distribution Width CV 11.9 % (11.6-14.6); RBC Distribution Width SD 41.3 fl (35.1-43.9); Red Blood Count 4.34 M/mm3 (4.2-5.4); White Blood Count 5.2 K/mm3 (4.4-11.0)
[2025-05-13 12:51] LABS: AST(SGOT) 26 U/L (<=31); Alanine Aminotransfer ALT/SGPT 25 U/L (<=34); Albumin, Serum 4.2 g/dL (3.5-5.0); Alkaline Phosphatase 59 U/L (35-104); Anion Gap 9 (5-15); BUN 11 mg/dL (4-19); BUN/Creat Ratio 15.5 RATIO (10-20); Calcium,Total 9.6 mg/dL (7.6-11.0); Carbon Dioxide 27.8 mmol/L (21.0-32.0); Chloride 103 mmol/L (98-108); Cholesterol 227 mg/dL (<=200); Globulin 3.0 g/dL (2.2-4.2); Glucose 96 mg/dL (70-99); Low Density Lipoprotein Calc. 109 mg/dL; Potassium 4.0 mmol/L (3.3-5.1); Triglycerides 98 mg/dL; Very Low Density Lipoprotein 20 mg/dL (5-40); cholesterol:hdl ratio screen 2.25
== END | disposition home or self-care (01) ==
LOC: MTLAB 10:24
PROVIDERS: PCP Internal Medicine; Referring Provider Internal Medicine; Visit Provider Internal Medicine
DX: Z00.00 Encounter for general adult medical examination without abnormal findings (principal)
CPT/HCPCS: 36415; 80053; 80061; 85025